=== PATIENT | male | born 1950 | race Two or more races ===

== ENCOUNTER 2018-02-20 08:23 | Inpatient (IN) | payer OTHER ==
[~2018-02-20] VITALS: Ht 172.7 cm; Wt 68.7 kg
[2018-02-20 08:28] VITALS: Ht 172.7 cm; Wt 68.7 kg
[2018-02-20 08:59] LABS: PLATELET COUNT 298 x10^3mcL (130-400); RED CELL DISTRIBUTION WIDTH 12.9 % (11.5-14.5)
[2018-02-20 09:09] LABS: CREATININE SERUM 2.1 mg/dL (0.7-1.3); POTASSIUM SERUM 4.5 mmol/L (3.5-5.1)
[2018-02-20 09:14] LABS: BILIRUBIN TOTAL 1.8 mg/dL (0.20-1.00); TOTAL PROTEIN, SERUM 6.7 g/dL (6.4-8.2)
[2018-02-20 09:15] LABS: ALBUMIN 3.2 g/dL (3.4-5.0)
[2018-02-20 09:17] LABS: BASOPHIL % 0 % (0-2)
[2018-02-20 11:32] LABS: MAGNESIUM 1.4 mg/dL (1.8-2.4); PHOSPHOROUS 4.2 mg/dL (2.5-4.9)
[2018-02-20 11:38] LABS: T3 TOTAL 0.74 ng/mL
[2018-02-20 11:45] LABS: FREE T4 0.96 ng/dL (0.76-1.46); FREE THYROXINE INDEX 2.6 ug/dL (1.4-4.5); T4(THYROXINE) 7.5 ug/dL (4.7-13.3)
[2018-02-20 12:00] VITALS: BP 116/70
[2018-02-20 13:08] VITALS: BP 116/70
[2018-02-20 15:40] VITALS: BP 98/62
[2018-02-20 19:38] VITALS: BP 96/59
[2018-02-20 23:26] VITALS: BP 89/60
[2018-02-21] VITALS (11 sets, daily range): BP systolic 87–109; BP diastolic 54–72
[2018-02-21 06:23] LABS: PLATELET COUNT 222 x10^3mcL (130-400); RED CELL DISTRIBUTION WIDTH 13.1 % (11.5-14.5)
[2018-02-21 07:03] LABS: CALCIUM 7.6 mg/dL (8.5-10.1); CARBON DIOXIDE 25.4 mmol/L (21-32); CHLORIDE SERUM 106 mmol/L (98-107); CREATININE SERUM 1.1 mg/dL (0.7-1.3); GFR1 > 60 mL/min; GLUCOSE SERUM 103 mg/dL (74-106); MAGNESIUM 2.6 mg/dL (1.8-2.4); POTASSIUM SERUM 4.1 mmol/L (3.5-5.1); SODIUM SERUM 139 mmol/L (136-145)
[2018-02-21 07:21] LABS: CHOLESTEROL/HDL RATIO 10.6
[2018-02-21 13:52] LABS: SEGMENTED NEUTROPHILS 45 % (37-75)
[2018-02-21 13:53] LABS: BAND NEUTROPHIL 38 % (0-10); MONOCYTE 4 % (0-7)
[2018-02-21 13:54] LABS: PLATELET MORPHOLOGY PLATELETS NORMAL; rbc morphology (normal/abnorm) NORMAL (NORMAL)
[2018-02-21 17:26] LABS: UA SPECIFIC GRAVITY 1.025 (1.005-1.035); microscopic required? YES; urine erythrocyte 1+ (NEGATIVE)
[2018-02-21 17:34] LABS: AMPHETAMINE QUAL UR POSITIVE (See below)
[2018-02-22 05:14] VITALS: BP 129/77
[2018-02-22 06:06] LABS: PLATELET COUNT 274 x10^3mcL (130-400); RED CELL DISTRIBUTION WIDTH 13.3 % (11.5-14.5)
[2018-02-22 06:30] LABS: CALCIUM 8.3 mg/dL (8.5-10.1); CARBON DIOXIDE 28.2 mmol/L (21-32); CHLORIDE SERUM 106 mmol/L (98-107); CREATININE SERUM 0.9 mg/dL (0.7-1.3); GFR1 > 60 mL/min; GLUCOSE SERUM 93 mg/dL (74-106); MAGNESIUM 1.8 mg/dL (1.8-2.4); PHOSPHOROUS 2.1 mg/dL (2.5-4.9); POTASSIUM SERUM 3.5 mmol/L (3.5-5.1); SODIUM SERUM 141 mmol/L (136-145)
[2018-02-22 09:36] VITALS: BP 104/66
[2018-02-22 12:50] LABS: BAND NEUTROPHIL 8 % (0-10); BASOPHIL 0 % (0-2); MONOCYTE 2 % (0-7); SEGMENTED NEUTROPHILS 79 % (37-75); rbc morphology (normal/abnorm) ABNORMAL (NORMAL)
[2018-02-22 12:51] LABS: PLATELET MORPHOLOGY PLATELETS NORMAL
[2018-02-22 13:41] VITALS: BP 92/59
[2018-02-22 17:07] VITALS: BP 119/72
[2018-02-22 18:42] LABS: ALBUMIN 1.9 g/dL (3.4-5.0); BILIRUBIN DIRECT 0.26 mg/dL (0.0-0.2); BILIRUBIN TOTAL 0.59 mg/dL (0.20-1.00); TOTAL PROTEIN, SERUM 5.6 g/dL (6.4-8.2)
[2018-02-22 21:16] VITALS: BP 102/57
[2018-02-23 05:53] VITALS: BP 108/69
[2018-02-23 06:55] LABS: BASOPHIL % 0.2 % (0-2); PLATELET COUNT 313 x10^3mcL (130-400); RED CELL DISTRIBUTION WIDTH 13.6 % (11.5-14.5)
[2018-02-23 07:04] LABS: CARBON DIOXIDE 34.6 mmol/L (21-32); CHLORIDE SERUM 102 mmol/L (98-107); CREATININE SERUM 0.9 mg/dL (0.7-1.3); GFR1 > 60 mL/min; GLUCOSE SERUM 93 mg/dL (74-106); MAGNESIUM 1.8 mg/dL (1.8-2.4); PHOSPHOROUS 4.6 mg/dL (2.5-4.9); POTASSIUM SERUM 3.4 mmol/L (3.5-5.1); SODIUM SERUM 144 mmol/L (136-145)
[2018-02-23 09:22] VITALS: BP 102/58
[2018-02-23 14:27] VITALS: BP 111/67
[2018-02-23] MEDS ORDERED: CLEOCIN HCL300 MG PO (16:29)
[2018-02-23] MEDS ORDERED: LEVAQUIN750 MG PO (16:29)
[2018-02-23] MEDS ORDERED: BD LACTINEX1.4 MG PO (16:30)
[2018-02-23] MEDS ORDERED: FUROSEMIDE40 MG PO (16:30)
[2018-02-23] MEDS ORDERED: LIPITOR40 MG PO (16:44)
[2018-02-23 17:39] VITALS: BP 111/73
== END 2018-02-23 19:39 | disposition home health service (06) | DRG 871 ==
LOC: ED 08:23 → IC 10:20 → DU 10:20 → IC 10:40 → DU 12:16
PROVIDERS: Family Medicine
PROC: 05HM33Z Insertion of Infusion Device into Right Internal Jugular Vein, Percutaneous Approach (ICD-10-PCS; principal; 2018-02-20)
PROC: B543ZZA Ultrasonography of Right Jugular Veins, Guidance (ICD-10-PCS; 2018-02-20)
DX: A41.9 Sepsis, unspecified organism (principal); R65.21 Severe sepsis with septic shock; J69.0 Pneumonitis due to inhalation of food and vomit; N17.0 Acute kidney failure with tubular necrosis; J96.01 Acute respiratory failure with hypoxia; G92 Toxic encephalopathy; E87.2 Acidosis; I42.9 Cardiomyopathy, unspecified; E83.42 Hypomagnesemia; F17.210 Nicotine dependence, cigarettes, uncomplicated; E87.6 Hypokalemia; T43.621A Poisoning by amphetamines, accidental (unintentional), initial encounter; I34.0 Nonrheumatic mitral (valve) insufficiency; I36.1 Nonrheumatic tricuspid (valve) insufficiency; Z68.25 Body mass index [BMI] 25.0-25.9, adult; Y92.018 Other place in single-family (private) house as the place of occurrence of the external cause
CPT/HCPCS: 36556; 36600; 83880; 84439; 85378; 90732; 97110-GP; 97116-GP; 97530-GP; C9113; G0480; J1642; J1644; J1885; J1940; J1956; J2060; J2270; J2543; J3475; J3490; J7030; J7620; Q0092

== ENCOUNTER 2018-03-18 15:08 | Emergency (ER) | payer OTHER ==
[~2018-03-18] VITALS: Ht 167.6 cm; Wt 67.1 kg
[~2018-03-18 15:08] MED LIST: BD LACTINEX1.4 MG PO; CLEOCIN HCL300 MG PO; FUROSEMIDE40 MG PO; LEVAQUIN750 MG PO; LIPITOR40 MG PO
[2018-03-18 18:23] LABS: CALCIUM 8.9 mg/dL (8.5-10.1); CARBON DIOXIDE 30.5 mmol/L (21-32); CHLORIDE SERUM 104 mmol/L (98-107); GFR1 > 60 mL/min; GLUCOSE SERUM 82 mg/dL (74-106); SODIUM SERUM 139 mmol/L (136-145)
[2018-03-18 18:27] LABS: ALKALINE PHOSPHATASE 90 U/L (46-116); ALT/SGPT 18 U/L (16-63); AMYLASE 67 U/L (25-115); AST/SGOT 17 U/L (15-37); BASOPHIL % 0.4 % (0-2); BILIRUBIN TOTAL 0.3 mg/dL (0.20-1.00); LIPASE 150 IU/L (73-393); PLATELET COUNT 343 x10^3mcL (130-400); RED CELL DISTRIBUTION WIDTH 13.2 % (11.5-14.5); TOTAL PROTEIN, SERUM 6.8 g/dL (6.4-8.2)
[2018-03-18 18:29] LABS: ALBUMIN 3.2 g/dL (3.4-5.0)
[2018-03-18 20:45] VITALS: BP 105/72
== END 2018-03-18 20:45 | disposition home or self-care (01) ==
LOC: ED 15:08
DX: R10.11 Right upper quadrant pain (principal); R11.0 Nausea
CPT/HCPCS: 36415; 83880; Q0092; Q0162

== ENCOUNTER → 2018-03-31 | Outpatient (CLI) | payer OTHER | END | disposition home or self-care (01) | LOC: RD 14:45 | DX: R06.02 Shortness of breath (principal) ==

== ENCOUNTER 2018-11-29 21:05 | Inpatient (IN) | payer OTHER ==
[~2018-11-29] VITALS: Ht 172.7 cm; Wt 67.7 kg
[2018-11-29 22:09] VITALS: Ht 172.7 cm; Wt 67.7 kg
[2018-11-29 22:59] LABS: BASOPHIL % 0.2 % (0-2); PLATELET COUNT 224 x10^3mcL (130-400); RED CELL DISTRIBUTION WIDTH 12.8 % (11.5-14.5)
[2018-11-29 23:02] LABS: CALCIUM 8.1 mg/dL (8.5-10.1); CARBON DIOXIDE 29.1 mmol/L (21-32); CHLORIDE SERUM 98 mmol/L (98-107); CREATININE SERUM 1.2 mg/dL (0.7-1.3); GFR1 > 60 mL/min; GLUCOSE SERUM 130 mg/dL (74-106); POTASSIUM SERUM 4.1 mmol/L (3.5-5.1); SODIUM SERUM 136 mmol/L (136-145)
[2018-11-29 23:13] LABS: ALBUMIN 3.4 g/dL (3.4-5.0); ALKALINE PHOSPHATASE 59 U/L (46-116); ALT/SGPT 30 U/L (16-63); AST/SGOT 34 U/L (15-37); BILIRUBIN TOTAL 0.64 mg/dL (0.20-1.00); FREE T4 0.83 ng/dL (0.76-1.46); LIPASE 162 IU/L (73-393)
[2018-11-30] VITALS (7 sets, daily range): BP systolic 90–132; BP diastolic 56–78
[2018-11-30 03:05] LABS: microscopic required? NO
[2018-11-30 03:36] LABS: UA SPECIFIC GRAVITY 1.015 (1.005-1.035); urine erythrocyte NEGATIVE (NEGATIVE)
[2018-11-30 03:50] LABS: AMPHETAMINE QUAL UR POSITIVE (See below)
[2018-12-01 05:55] VITALS: BP 91/65
[2018-12-01 07:29] LABS: ALKALINE PHOSPHATASE 58 U/L (46-116); ALT/SGPT 24 U/L (16-63); AST/SGOT 32 U/L (15-37); BILIRUBIN TOTAL 0.4 mg/dL (0.20-1.00); CALCIUM 8.2 mg/dL (8.5-10.1); CARBON DIOXIDE 27.8 mmol/L (21-32); CHLORIDE SERUM 100 mmol/L (98-107); CREATININE SERUM 0.8 mg/dL (0.7-1.3); GFR1 > 60 mL/min; GLUCOSE SERUM 87 mg/dL (74-106); POTASSIUM SERUM 3.6 mmol/L (3.5-5.1); SODIUM SERUM 138 mmol/L (136-145); TOTAL PROTEIN, SERUM 6.9 g/dL (6.4-8.2)
[2018-12-01 07:44] LABS: ALBUMIN 3.1 g/dL (3.4-5.0)
[2018-12-01 08:12] LABS: BASOPHIL % 0.3 % (0-2); PLATELET COUNT 232 x10^3mcL (130-400); RED CELL DISTRIBUTION WIDTH 12.8 % (11.5-14.5)
[2018-12-01 09:24] VITALS: BP 109/75
[2018-12-01 12:10] LABS: ERYTHROCYTE SED RATE 15 mm/hr (0-20)
[2018-12-01 13:25] VITALS: BP 94/62
[2018-12-01 14:36] VITALS: BP 94/62
[2018-12-01 17:01] VITALS: BP 92/55
[2018-12-02 06:27] LABS: RAPID PLASMA REAGIN Non Reactive (Non Reactive)
[2018-12-02 09:08] LABS: RHEUMATOID ARTHRITIS FACTOR 11.7 IU/mL (0.0-13.9)
== END 2018-12-01 19:00 | disposition home or self-care (01) | DRG 194 ==
LOC: ED 21:05 → DU 11-30 00:39
PROVIDERS: Emergency Medicine; ADMIT Internal Medicine
DX: J09.X2 Influenza due to identified novel influenza A virus with other respiratory manifestations (principal); N17.9 Acute kidney failure, unspecified; R56.9 Unspecified convulsions; R55 Syncope and collapse; R73.9 Hyperglycemia, unspecified; F15.10 Other stimulant abuse, uncomplicated
CPT/HCPCS: 82962; 83880; 84439; 86431; 87804; 94150; G0480; J0696; J7030; J7050; Q0092

== ENCOUNTER → 2019-01-25 | Outpatient (CLI) | payer OTHER | END | disposition home or self-care (01) | LOC: US 15:13 | PROC: BG44ZZZ Ultrasonography of Thyroid Gland (ICD-10-PCS; principal; 2019-01-25) | DX: E07.9 Disorder of thyroid, unspecified (principal); E04.1 Nontoxic single thyroid nodule ==